=== PATIENT | male | born 1945 | race Caucasian/White ===

== ENCOUNTER 2017-09-05 07:41 | Day surgery (SDC) | payer MEDICARE, BC ==
[~2017-09-05] VITALS: Ht 188 cm; Wt 72.5 kg
[~2017-09-05 07:41] MED LIST: AMOX1XR PO; ASPI81CH PO; ATEN50 PO; Augmentin 875-1 EACH PO; CITA20 PO; CYCL10 PO; FLUSAL2505 INH; FLUT.05NI; GABA300 PO; HYDMOR4 PO; IBUP600 PO; Keflex500 MG PO; LEVFLO500 PO; MELO7.5; MELO7.5 PO; NAPR220; Norco 5-325 Ta1 EACH PO; OCUVITE EYE +1 EACH PO; OXYACE5T PO; OXYB5 PO; OXYC5 PO; PROM25 PO; Restoril30 MG PO; TAMS.4ER PO; TEMA30 PO; VENL150ER PO; VENL25 PO
[2017-09-05] MEDS ORDERED: AMLO5 PO (08:14)
== END 2017-09-05 11:06 | disposition home or self-care (01) ==
LOC: ORSCSDS 07:41
PROVIDERS: Orthopaedic Surgery
PROC: 01X40Z4 Transfer Ulnar Nerve to Ulnar Nerve, Open Approach (ICD-10-PCS; principal; 2017-09-05 08:45)
DX: G56.21 Lesion of ulnar nerve, right upper limb (principal); J44.9 Chronic obstructive pulmonary disease, unspecified; F17.210 Nicotine dependence, cigarettes, uncomplicated; F32.9 Major depressive disorder, single episode, unspecified; Z79.899 Other long term (current) drug therapy
CPT/HCPCS: J0171; J0690; J1100; J2250; J2370; J2405; J3010; J7120

== ENCOUNTER → 2018-12-31 | Outpatient (CLI) | payer MEDICARE, BC ==
[~2018-12-31] MED LIST changes: +AMLO5 PO
[2018-12-31 14:22] LABS: BASOPHILS ABSOLUTE AUTO 0.04 K/mm3 (0.00-0.23); BASOPHILS PERCENT AUTO 0 % (0-2); EOSINOPHILS PERCENT AUTO 0 % (0-6); Hematocrit 42.8 % (37.0-53.0); Hemoglobin 15.1 g/dL (13.5-17.5); IMMATURE GRAN ABSOLUTE AUTO 0.03 K/mm3 (0.00-0.10); IMMATURE GRAN PERCENT AUTO 0 % (0-1); LYMPHOCYTES ABSOLUTE AUTO 1.28 K/mm3 (0.84-5.20); LYMPHOCYTES PERCENT AUTO 14 % (21-46); MONOCYTES ABSOLUTE AUTO 0.82 K/mm3 (0.16-1.47); MONOCYTES PERCENT AUTO 9 % (4-13); Mean Corpuscular HGB 35.6 pg (26.0-34.0); Mean Corpuscular HGB Conc 35.3 g/dL (31.5-36.5); Mean Corpuscular Volume 101 fL (80-100); NEUTROPHILS ABSOLUTE AUTO 7.24 K/mm3 (1.96-9.15); NEUTROPHILS PERCENT AUTO 77 % (41-73); Platelet Count 245 K/mm3 (150-400); RDW Coefficient Variation 12.6 % (11.7-14.2); Red Blood Cell Count 4.24 M/mm3 (4.30-5.90); White Blood Cell Count 9.41 K/mm3 (4.00-11.30)
[2018-12-31 14:32] LABS: Alanine Aminotransfer (ALT/SGP 29 U/L (12-78); Albumin, Blood 3.4 g/dL (3.4-5.0); Albumin/Globulin Ratio 0.9 (0.8-1.8); Alk Phos 118 U/L (40-126); Anion Gap 9 mmol/L (6-16); Aspartate Aminotrans (AST/SGOT 51 U/L (12-37); Bilirubin, Total 0.5 mg/dL (0.1-1.0); Blood Urea Nitrogen 8 mg/dL (8-24); Bun/Creatinine Ratio 10.5 (12.0-20.0); CO2, Blood 29 mmol/L (21-32); Calcium, Blood 9.2 mg/dL (8.5-10.1); Chloride, Blood 95 mmol/L (98-108); Creatinine, Blood 0.76 mg/dL (0.60-1.20); Globulin, Blood 3.8 g/dL (2.2-4.0); Glomerular Filtration Rate >60 (60-); Glucose, Blood 153 mg/dL (70-99); Potassium, Blood 4.3 mmol/L (3.5-5.5); Sodium, Blood 133 mmol/L (136-145); Total Protein, Blood 7.2 g/dL (6.4-8.2)
== END | disposition home or self-care (01) ==
LOC: LAB SHORT 14:17 → LAB EV 14:17
PROVIDERS: Physician Assistant Surgical
DX: R10.9 Unspecified abdominal pain (principal)
CPT/HCPCS: 80053; 85025; 87086

== ENCOUNTER 2019-05-15 18:27 | Emergency (ER) | payer MEDICARE, BC ==
[~2019-05-15] VITALS: Ht 188 cm; Wt 70.3 kg
[2019-05-15] MEDS ORDERED: GABA100 PO (18:42)
[2019-05-15] MEDS ORDERED: AMLO10 PO (18:43)
[2019-05-15] MEDS ORDERED: PRED1 (18:44)
[2019-05-15 19:13] LABS: BASOPHILS ABSOLUTE AUTO 0.03 K/mm3 (0.00-0.23); BASOPHILS PERCENT AUTO 0 % (0-2); EOSINOPHILS ABSOLUTE AUTO 0.02 K/mm3 (0.00-0.68); EOSINOPHILS PERCENT AUTO 0 % (0-6); Hematocrit 37.6 % (37.0-53.0); Hemoglobin 13.1 g/dL (13.5-17.5); IMMATURE GRAN ABSOLUTE AUTO 0.09 K/mm3 (0.00-0.10); IMMATURE GRAN PERCENT AUTO 1 % (0-1); LYMPHOCYTES ABSOLUTE AUTO 1.03 K/mm3 (0.84-5.20); LYMPHOCYTES PERCENT AUTO 12 % (21-46); MONOCYTES ABSOLUTE AUTO 0.71 K/mm3 (0.16-1.47); MONOCYTES PERCENT AUTO 8 % (4-13); Mean Corpuscular HGB Conc 34.8 g/dL (31.5-36.5); Mean Corpuscular Volume 106 fL (80-100); Mean Platelet Volume 9.5 fL (9.1-12.4); NEUTROPHILS ABSOLUTE AUTO 7.01 K/mm3 (1.96-9.15); NEUTROPHILS PERCENT AUTO 79 % (41-73); NRBC ABSOLUTE 0.03 K/mm3 (0.00-0.02); NRBC Auto 0.3 /100 WBC (0.0-0.2); Platelet Count 236 K/mm3 (150-400); RDW Standard Deviation 50.2 fL (35.1-46.3); Red Blood Cell Count 3.54 M/mm3 (4.30-5.90); White Blood Cell Count 8.89 K/mm3 (4.00-11.30)
[2019-05-15 19:39] LABS: Alanine Aminotransfer (ALT/SGP 52 U/L (12-78); Albumin, Blood 2.7 g/dL (3.4-5.0); Albumin/Globulin Ratio 0.8 (0.8-1.8); Alk Phos 108 U/L (50-136); Anion Gap 6 mmol/L (6-16); Aspartate Aminotrans (AST/SGOT 79 U/L (12-37); Bilirubin, Total 0.4 mg/dL (0.1-1.0); Blood Urea Nitrogen 7 mg/dL (8-24); CO2, Blood 26 mmol/L (21-32); Calcium, Blood 8.4 mg/dL (8.5-10.1); Chloride, Blood 101 mmol/L (98-108); Creatinine, Blood 0.47 mg/dL (0.60-1.20); Globulin, Blood 3.6 g/dL (2.2-4.0); Glomerular Filtration Rate >60 (60-); Glucose, Blood 97 mg/dL (70-99); Potassium, Blood 5.2 mmol/L (3.5-5.5); Sodium, Blood 133 mmol/L (136-145); Total Protein, Blood 6.3 g/dL (6.4-8.2); Troponin I <0.015 ng/mL (0.000-0.040)
== END 2019-05-15 21:35 | disposition home or self-care (01) ==
LOC: ER 18:27
PROVIDERS: Emergency Medicine
DX: F10.229 Alcohol dependence with intoxication, unspecified (principal); Y90.8 Blood alcohol level of 240 mg/100 ml or more; R55 Syncope and collapse; S22.42XA Multiple fractures of ribs, left side, initial encounter for closed fracture; S32.019A Unspecified fracture of first lumbar vertebra, initial encounter for closed fracture; S32.029A Unspecified fracture of second lumbar vertebra, initial encounter for closed fracture; S30.1XXA Contusion of abdominal wall, initial encounter; W18.39XA Other fall on same level, initial encounter; F17.210 Nicotine dependence, cigarettes, uncomplicated; Z79.899 Other long term (current) drug therapy; Z79.1 Long term (current) use of non-steroidal anti-inflammatories (NSAID); Z79.52 Long term (current) use of systemic steroids
CPT/HCPCS: 72131; 80053; 84484; 85025; 93005; 93010; 96374; 99284-25; A9270; G0480; J1885

== ENCOUNTER 2019-09-24 09:04 | Inpatient (IN) | payer MEDICARE, BC ==
[~2019-09-24] VITALS: Ht 188 cm; Wt 66.2 kg
[~2019-09-24 09:04] MED LIST changes: +AMLO10 PO; -AMLO5 PO; +GABA100 PO; +PRED1
[2019-09-24 09:55] LABS: Bilirubin, Urine Neg (Neg); Blood, Urine Neg (Neg); Glucose Qualitative, Urine Neg (Neg); Ketones, Urine Neg (Neg); Leukocyte Esterase, Urine Neg (Neg); Nitrite, Urine Neg (Neg); Protein, Urine Neg (Neg); Source, Urine Catheter; Urobilinogen, Urine 1+ (Normal)
[2019-09-24 10:02] LABS: Alanine Aminotransfer (ALT/SGP 46 U/L (12-78); Albumin, Blood 1.7 g/dL (3.4-5.0); Albumin/Globulin Ratio 0.5 (0.8-1.8); Alk Phos 122 U/L (50-136); Anion Gap 6 mmol/L (6-16); Aspartate Aminotrans (AST/SGOT 38 U/L (12-37); Blood Urea Nitrogen 7 mg/dL (8-24); Bun/Creatinine Ratio 18.6 (12.0-20.0); CO2, Blood 29 mmol/L (21-32); Calcium, Blood 7.8 mg/dL (8.5-10.1); Chloride, Blood 103 mmol/L (98-108); Creatinine, Blood 0.38 mg/dL (0.60-1.20); Globulin, Blood 3.4 g/dL (2.2-4.0); Glomerular Filtration Rate >60 (60-); Glucose, Blood 116 mg/dL (70-99); Potassium, Blood 3.1 mmol/L (3.5-5.5); Sodium, Blood 138 mmol/L (136-145); Total Protein, Blood 5.1 g/dL (6.4-8.2)
[2019-09-24 10:05] LABS: Troponin I 0.016 ng/mL (0.000-0.040)
[2019-09-24 10:06] LABS: Bilirubin, Total 0.4 mg/dL (0.1-1.0)
[2019-09-24 10:24] LABS: BASOPHILS ABSOLUTE AUTO 0.04 K/mm3 (0.00-0.23); BASOPHILS PERCENT AUTO 1 % (0-2); EOSINOPHILS ABSOLUTE AUTO 0.02 K/mm3 (0.00-0.68); EOSINOPHILS PERCENT AUTO 0 % (0-6); Hematocrit 33.7 % (37.0-53.0); Hemoglobin 11.2 g/dL (13.5-17.5); IMMATURE GRAN PERCENT AUTO 1 % (0-1); LYMPHOCYTES ABSOLUTE AUTO 1.16 K/mm3 (0.84-5.20); LYMPHOCYTES PERCENT AUTO 14 % (21-46); MONOCYTES ABSOLUTE AUTO 0.89 K/mm3 (0.16-1.47); MONOCYTES PERCENT AUTO 11 % (4-13); Mean Corpuscular HGB 35.7 pg (26.0-34.0); Mean Corpuscular HGB Conc 33.2 g/dL (31.5-36.5); Mean Platelet Volume 9.1 fL (9.1-12.4); NEUTROPHILS ABSOLUTE AUTO 5.96 K/mm3 (1.96-9.15); NEUTROPHILS PERCENT AUTO 73 % (41-73); Platelet Count 407 K/mm3 (150-400); RDW Coefficient Variation 13.6 % (11.7-14.2); RDW Standard Deviation 53.9 fL (35.1-46.3); Red Blood Cell Count 3.14 M/mm3 (4.30-5.90); White Blood Cell Count 8.17 K/mm3 (4.00-11.30)
[2019-09-24 10:25] LABS: Mean Corpuscular Volume 107 fL (80-100)
[2019-09-24 10:29] LABS: Appearance, Urine Clear (Clear); Color, Urine Yellow (P-Yellow)
[2019-09-24] MEDS ORDERED: TRAM50 PO (12:09)
[2019-09-24] MEDS ORDERED: ESCITALOPRAM OX20 M1 PO (12:09)
[2019-09-24] MEDS ORDERED: POTASSIUM CHLO10 MEQ PO (12:10)
[2019-09-24] MEDS ORDERED: FUROSEMIDE40 MG PO (12:10)
[2019-09-24] MEDS ORDERED: Primidone50 MG PO (12:11)
[2019-09-24] MEDS ORDERED: AMLO5 PO (12:12)
--- NOTE | 2019-09-24 14:24 | NUR ---
Echocardiogram completed.
--- NOTE | 2019-09-24 17:44 | NUR ---
PT SETTLED INTO ROOM AT 1430. PT DOING WELL, BUT WAS GETTING AGITATED AND STATED HE WAS FEELING ANXIOUS. CWIA WAS AN 8 PT TREATED PER EMAR. WILL CONTINUE TO MONITOR. PT AOX4 BUT THEN WILL BE MILDLY CONFUSED. PT WAS ABLE TO ANSWER HX WITHOUT PRESENT. CALL LIGHT WITHIN REACH. BED ALARM IN PLACE.
[2019-09-25 04:27] LABS: BASOPHILS ABSOLUTE AUTO 0.03 K/mm3 (0.00-0.23); BASOPHILS PERCENT AUTO 1 % (0-2); EOSINOPHILS ABSOLUTE AUTO 0.07 K/mm3 (0.00-0.68); EOSINOPHILS PERCENT AUTO 1 % (0-6); Hematocrit 32.4 % (37.0-53.0); Hemoglobin 10.7 g/dL (13.5-17.5); IMMATURE GRAN PERCENT AUTO 2 % (0-1); LYMPHOCYTES PERCENT AUTO 14 % (21-46); MONOCYTES ABSOLUTE AUTO 0.73 K/mm3 (0.16-1.47); MONOCYTES PERCENT AUTO 11 % (4-13); Mean Corpuscular HGB 35.8 pg (26.0-34.0); Mean Corpuscular Volume 108 fL (80-100); Mean Platelet Volume 8.9 fL (9.1-12.4); NEUTROPHILS ABSOLUTE AUTO 4.82 K/mm3 (1.96-9.15); NEUTROPHILS PERCENT AUTO 72 % (41-73); Platelet Count 423 K/mm3 (150-400); RDW Coefficient Variation 13.5 % (11.7-14.2); RDW Standard Deviation 53.7 fL (35.1-46.3); Red Blood Cell Count 2.99 M/mm3 (4.30-5.90); White Blood Cell Count 6.65 K/mm3 (4.00-11.30)
[2019-09-25 04:48] LABS: Alanine Aminotransfer (ALT/SGP 38 U/L (12-78); Albumin, Blood 1.6 g/dL (3.4-5.0); Albumin/Globulin Ratio 0.5 (0.8-1.8); Alk Phos 111 U/L (50-136); Anion Gap 5 mmol/L (6-16); Aspartate Aminotrans (AST/SGOT 31 U/L (12-37); Bilirubin, Total 0.4 mg/dL (0.1-1.0); Blood Urea Nitrogen 5 mg/dL (8-24); Bun/Creatinine Ratio 11.2 (12.0-20.0); CO2, Blood 26 mmol/L (21-32); Calcium, Blood 7.8 mg/dL (8.5-10.1); Chloride, Blood 108 mmol/L (98-108); Creatinine, Blood 0.45 mg/dL (0.60-1.20); Glomerular Filtration Rate >60 (60-); Glucose, Blood 80 mg/dL (70-99); Magnesium, Blood 1.9 mg/dL (1.6-2.4); Potassium, Blood 3.6 mmol/L (3.5-5.5); Sodium, Blood 139 mmol/L (136-145); Total Protein, Blood 4.6 g/dL (6.4-8.2)
--- NOTE | 2019-09-25 06:22 | NUR ---
SHIFT SUMMARY PT IS A 74 Y/O MALE, ADMITTED FOR INCREASED WEAKNESS, FREQUENT FALLS AT HOME AND ASPIRATION PNEUMONIA. THE PT WAS VERY CONFUSED THROUGH THE NIGHT, A&O X SELF AND FAMILY ONLY. PT IS CURRENTLY ON CIWA, AND STATED THAT HE DRINKS AT LEAST A "SIX PACK OF BEER A NIGHT". CIWA SCORES WERE BETWEEN 15-17, DUE TO PT'S AMS, VISIBLE TREMORS EVEN AT REST, AND C/O A SEVERE HEADACHE. PT WAS MEDICATED WITH OT ULTRAM FOR CHRONIC NECK PAIN AND HEADACHE AFTER CONSULTING WITH HOSPITALIST ELECTROPLATER JOSE ALFREDO MATTHEW, WHICH PER PT HELPED THE PT'S NECK PAIN BUT NOT THE HEADACHE. PT WAS MEDICATED TWICE WITH LIBRIUM, AND ONCE WITH IV ATIVAN. NO COMPLAINTS OF NAUSEA OR SOB. VITAL SIGNS STABLE. PT DID SHOW SIGNS OF ASPIRATION WHEN TAKING LIBRIUM THIS AM. NO OTHER ACUTE CHANGES IN PT CONDITION NOTED. WILL CONTINUE TO MONITOR AND TREAT PER EMAR UNTIL HAND OFF TO DAY SHIFT RN.
[2019-09-25 13:11] LABS: Percent Saturation 27.5 % (20.0-50.0)
[2019-09-25 14:04] LABS: U Amphetamine Screen Not Detected; U Barbituate Screen Not Detected; U Benzodiazapine Screen DETECTED; U Buprenorphine Screen Not Detected; U Cannabinoids Screen Not Detected; U Cocaine Screen Not Detected; U Methadone Screen Not Detected; U Methamphetamine Screen Not Detected; U Opiates Screen Not Detected; U Oxycodone Screen Not Detected; U Propoxyphene Screen Not Detected
--- NOTE | 2019-09-25 18:30 | NUR ---
SHIFT SUMMARY PATIENT DENIES NAUSEA AND SHORTNESS OF BREATH. REPORTS PAIN IN HIS NECK. NEW ORDERS FOR PAIN MEDS GIVEN. PATIENT CIWA'S STABLE UNDER 8. PATIENT WORKED WITH PT TODAY. PATIENT UNABLE TO BEAR WEIGHT OR TRANFER TO CHAIR. PATIENT REPOSITIONED Q2. PATIENT MILDLY CONFUSED. CALL LIGHT IN REACH.
[2019-09-26 04:52] LABS: BASOPHILS ABSOLUTE AUTO 0.04 K/mm3 (0.00-0.23); BASOPHILS PERCENT AUTO 1 % (0-2); EOSINOPHILS ABSOLUTE AUTO 0.07 K/mm3 (0.00-0.68); EOSINOPHILS PERCENT AUTO 1 % (0-6); Hematocrit 33.5 % (37.0-53.0); IMMATURE GRAN ABSOLUTE AUTO 0.12 K/mm3 (0.00-0.10); IMMATURE GRAN PERCENT AUTO 2 % (0-1); LYMPHOCYTES ABSOLUTE AUTO 0.57 K/mm3 (0.84-5.20); LYMPHOCYTES PERCENT AUTO 7 % (21-46); MONOCYTES ABSOLUTE AUTO 0.64 K/mm3 (0.16-1.47); MONOCYTES PERCENT AUTO 8 % (4-13); Mean Corpuscular HGB 35.5 pg (26.0-34.0); Mean Corpuscular HGB Conc 32.8 g/dL (31.5-36.5); Mean Corpuscular Volume 108 fL (80-100); NEUTROPHILS ABSOLUTE AUTO 6.65 K/mm3 (1.96-9.15); NEUTROPHILS PERCENT AUTO 82 % (41-73); Platelet Count 446 K/mm3 (150-400); RDW Coefficient Variation 13.6 % (11.7-14.2); RDW Standard Deviation 54.3 fL (35.1-46.3); White Blood Cell Count 8.09 K/mm3 (4.00-11.30)
[2019-09-26 05:10] LABS: Anion Gap 4 mmol/L (6-16); Blood Urea Nitrogen 4 mg/dL (8-24); Bun/Creatinine Ratio 9.4 (12.0-20.0); CO2, Blood 27 mmol/L (21-32); Calcium, Blood 8.2 mg/dL (8.5-10.1); Chloride, Blood 110 mmol/L (98-108); Creatinine, Blood 0.42 mg/dL (0.60-1.20); Glomerular Filtration Rate >60 (60-); Glucose, Blood 96 mg/dL (70-99); Magnesium, Blood 1.8 mg/dL (1.6-2.4); Potassium, Blood 3.1 mmol/L (3.5-5.5); Sodium, Blood 141 mmol/L (136-145)
--- NOTE | 2019-09-26 06:11 | NUR ---
SHIFT SUMMARY PT IS A 74 Y/O MALE, ADMITTED FOR INCREASED WEAKNESS, MULTIPLE FALLS AT HOME AND ASPIRATION PNA. HE IS A&O X SELF AND FAMILY, ABLE TO VERBALIZE NEEDS WELL BUT CONFUSED TO LOCATION AND DATE. PTS CIWA RAN 4-7, DUE TO PT'S DISORIENTATION. HE WAS MEDICATED ONCE FOR CHRONIC NECK PAIN WITH PRN ULTRAM. VITAL SIGNS STABLE. NO ACUTE CHANGES IN PT CONDITION NOTED. WILL CONTINUE TO MONITOR AND TREAT PER EMAR UNTIL HAND OFF TO DAY SHIFT RN.
--- NOTE | 2019-09-26 17:28 | NUR ---
SHIFT SUMMARY PATIENT MEDICATED X2 FOR PAIN THIS SHIFT. PATIENT DENIES NAUSEA AND SHORTNESS OF BREATH. PATIENT UP 2 ASSIST STAND PIVOT TO BSC. PATIENT EATING AND DRINKING WELL. AT BEDSIDE TODAY. CALL LIGHT IN REACH.
[2019-09-27 05:27] LABS: Hematocrit 32.9 % (37.0-53.0); Hemoglobin 10.8 g/dL (13.5-17.5); Mean Corpuscular HGB 35.8 pg (26.0-34.0); Mean Corpuscular HGB Conc 32.8 g/dL (31.5-36.5); Mean Corpuscular Volume 109 fL (80-100); Mean Platelet Volume 9.2 fL (9.1-12.4); Platelet Count 452 K/mm3 (150-400); RDW Standard Deviation 56.7 fL (35.1-46.3); Red Blood Cell Count 3.02 M/mm3 (4.30-5.90)
--- NOTE | 2019-09-27 05:55 | NUR ---
SHIFT SUMMARY PT IS A 74 Y/O MALE, ADMITTED FOR ASPIRATION PNA AND INCREASED WEAKNESS AFTER A FALL AT HOME. PT IS A&O X 2, THOUGH ABLE TO VERBALIZE NEEDS AND HISTORY WELL. CIWAS HAVE BEEN LOW, BETWEEN 1-5. PT WAS MEDICATED ONCE FOR CHRONIC NECK PAIN. NO COMPLAINTS OF NAUSEA OR SOB. VITAL SIGNS STABLE. PT SLEPT WELL DURING THE NIGHT. NO ACUTE CHANGES IN PT CONDITION NOTED. WILL CONTINUE TO MONITOR AND TREAT PER EMAR UNTIL HAND OFF TO DAY SHIFT RN.
[2019-09-27 05:58] LABS: Magnesium, Blood 1.7 mg/dL (1.6-2.4)
[2019-09-27 06:00] LABS: Anion Gap 5 mmol/L (6-16); Blood Urea Nitrogen 4 mg/dL (8-24); Bun/Creatinine Ratio 9.9 (12.0-20.0); CO2, Blood 25 mmol/L (21-32); Calcium, Blood 8.3 mg/dL (8.5-10.1); Chloride, Blood 111 mmol/L (98-108); Creatinine, Blood 0.41 mg/dL (0.60-1.20); Glomerular Filtration Rate >60 (60-); Glucose, Blood 92 mg/dL (70-99); Potassium, Blood 3.7 mmol/L (3.5-5.5); Sodium, Blood 141 mmol/L (136-145)
[2019-09-27] MEDS ORDERED: ALBU2.5V5 INH (15:23)
[2019-09-27] MEDS ORDERED: GABA100 PO (15:24)
[2019-09-27] MEDS ORDERED: FLUTICASONE-SA1 EAC1 INH (15:24)
[2019-09-27] MEDS ORDERED: METO25 PO (15:25)
[2019-09-27] MEDS ORDERED: NICO21TP TOP (15:26)
[2019-09-27] MEDS ORDERED: FOLI1 PO (15:27)
[2019-09-27] MEDS ORDERED: B-1100 M1 PO (15:27)
[2019-09-27] MEDS ORDERED: LEVOFLOXACIN750 MG PO (15:27)
--- NOTE | 2019-09-27 15:43 | NUR ---
DISCHARGE NOTE- PT DISCHARGED TO [facility] IN [place]. IVS AND TELE DC'D PRIOR TO DISCHARGE. PT CHANGED AND TRANSFERED TO CHAIR PENDING WC TRANSPORT. PT TRANSFERED 1PA FROM THE CHAIR TO THE AND WAS TAKEN VIA TRANSPORT TO [facility]. PER CARE MANAGEMENT PT SPOUSE WAS INFORMED OF THE DISCHARGE AND WILL MEET THE PT AT [facility].
== END 2019-09-27 15:40 | DRG 896 ==
LOC: ER 09:04 → MEDS 11:56
PROVIDERS: Emergency Medicine; Internal Medicine; Nurse Practitioner Acute Care; ADMIT Hospitalist
DX: F10.239 Alcohol dependence with withdrawal, unspecified (principal); J69.0 Pneumonitis due to inhalation of food and vomit; J44.9 Chronic obstructive pulmonary disease, unspecified; E87.6 Hypokalemia; F32.9 Major depressive disorder, single episode, unspecified; H35.30 Unspecified macular degeneration; G62.9 Polyneuropathy, unspecified; F17.210 Nicotine dependence, cigarettes, uncomplicated; Z66 Do not resuscitate; K22.4 Dyskinesia of esophagus; E83.42 Hypomagnesemia; D64.9 Anemia, unspecified
CPT/HCPCS: 36415; 51701; 70450; 71046; 80048; 80053; 81003; 82607; 82728; 82746; 83540; 83550; 83735; 84443; 84484; 85025; 85027; 92610; 93005; 93010; 93306; 94640; 94760; 96365-59; 96366-59; 96367-59; 96368; 96372-59; 97110; 97163; 97166; 97530; 97535; 99285-25; A9270-GY; C9113; J0696; J1650; J2060; J3411; J3475; J3480; J7030; J7042

== ENCOUNTER 2019-10-07 20:25 | Inpatient (IN) | payer MEDICARE, BC ==
[~2019-10-07] VITALS: Ht 190.5 cm; Wt 66.4 kg
[~2019-10-07 20:25] MED LIST changes: +AMLO5 PO; +FUROSEMIDE40 MG PO; +LEVOFLOXACIN750 MG PO; +NICO21TP TOP; +POTASSIUM CHLO10 MEQ PO
[2019-10-07 20:42] LABS: BASOPHILS ABSOLUTE AUTO 0.03 K/mm3 (0.00-0.23); BASOPHILS PERCENT AUTO 0 % (0-2); EOSINOPHILS ABSOLUTE AUTO 0.01 K/mm3 (0.00-0.68); EOSINOPHILS PERCENT AUTO 0 % (0-6); Hematocrit 31.2 % (37.0-53.0); Hemoglobin 10.5 g/dL (13.5-17.5); IMMATURE GRAN ABSOLUTE AUTO 0.04 K/mm3 (0.00-0.10); IMMATURE GRAN PERCENT AUTO 1 % (0-1); LYMPHOCYTES ABSOLUTE AUTO 0.88 K/mm3 (0.84-5.20); LYMPHOCYTES PERCENT AUTO 11 % (21-46); MONOCYTES ABSOLUTE AUTO 0.97 K/mm3 (0.16-1.47); MONOCYTES PERCENT AUTO 13 % (4-13); Mean Corpuscular HGB 34.1 pg (26.0-34.0); Mean Corpuscular HGB Conc 33.7 g/dL (31.5-36.5); NEUTROPHILS ABSOLUTE AUTO 5.76 K/mm3 (1.96-9.15); NEUTROPHILS PERCENT AUTO 75 % (41-73); Platelet Count 386 K/mm3 (150-400); RDW Coefficient Variation 12.6 % (11.7-14.2); RDW Standard Deviation 47.8 fL (35.1-46.3); Red Blood Cell Count 3.08 M/mm3 (4.30-5.90); White Blood Cell Count 7.69 K/mm3 (4.00-11.30)
[2019-10-07 20:43] LABS: Mean Corpuscular Volume 101 fL (80-100)
[2019-10-07] MEDS ORDERED: TRAM50 PO (20:55)
[2019-10-07] MEDS ORDERED: Primidone50 MG PO (20:56)
[2019-10-07] MEDS ORDERED: ESCITALOPRAM OX20 M1 PO (20:56)
[2019-10-07] MEDS ORDERED: ALBU2.5V5 NEB (20:57)
[2019-10-07] MEDS ORDERED: FLUTICASONE-SA1 EAC1 INH (20:58)
[2019-10-07] MEDS ORDERED: GABA100 PO (20:58)
[2019-10-07] MEDS ORDERED: METO25 PO (20:58)
[2019-10-07] MEDS ORDERED: FOLI1 PO (21:00)
[2019-10-07] MEDS ORDERED: B-1100 M1 PO (21:00)
[2019-10-07 21:05] LABS: Alanine Aminotransfer (ALT/SGP 18 U/L (12-78); Albumin, Blood 1.9 g/dL (3.4-5.0); Albumin/Globulin Ratio 0.6 (0.8-1.8); Alk Phos 88 U/L (50-136); Anion Gap 7 mmol/L (6-16); Aspartate Aminotrans (AST/SGOT 27 U/L (12-37); Bilirubin, Total 0.2 mg/dL (0.1-1.0); Blood Urea Nitrogen 8 mg/dL (8-24); Bun/Creatinine Ratio 16.6 (12.0-20.0); CO2, Blood 26 mmol/L (21-32); Calcium, Blood 8.1 mg/dL (8.5-10.1); Chloride, Blood 98 mmol/L (98-108); Creatinine, Blood 0.48 mg/dL (0.60-1.20); Globulin, Blood 3.3 g/dL (2.2-4.0); Glomerular Filtration Rate >60 (60-); Glucose, Blood 147 mg/dL (70-99); Magnesium, Blood 1.4 mg/dL (1.6-2.4); Potassium, Blood 3.9 mmol/L (3.5-5.5); Sodium, Blood 131 mmol/L (136-145); Total Protein, Blood 5.2 g/dL (6.4-8.2)
[2019-10-07 21:49] LABS: Source, Urine Catheter
[2019-10-07 21:54] LABS: Bilirubin, Urine Neg (Neg); Blood, Urine Neg (Neg); Glucose Qualitative, Urine Neg (Neg); Ketones, Urine Neg (Neg); Leukocyte Esterase, Urine 1+ (Neg); Nitrite, Urine Neg (Neg); Protein, Urine Neg (Neg); Urobilinogen, Urine NORM (Normal)
[2019-10-07 22:03] LABS: Appearance, Urine Clear (Clear); Color, Urine Yellow (P-Yellow)
[2019-10-07 22:04] LABS: Bacteria Not Seen /hpf; Red Blood Cells, Urine Not Seen /hpf (0-2); Squamous Epithelial Cells Not Seen /hpf (Few); Transitional Epithelial Cells Few /hpf (0-Rare); White Blood Cells, Urine Rare /hpf (0-5)
--- NOTE | 2019-10-08 01:01 | NUR ---
PATIENT IS A NEW ADMIT FROM THE ED. AMS SLOWLY IMPROVING PER ED RN. PATIENT ABLE TO ANSWER A FEW BASIC QUESTIONS. FOUR PERSON TRANSFER FROM [facility] TO BED. BEDREST. ON 3L O2 NC. ALMANZA PRESENT ON ADMIT FROM THE ED. AXOX 3 AND SLOW TO RESPOND. KNOWS HE IS AT [facility], WHAT TOWN HE LIVES IN AND FOLLOWING DIRECTIONS. WOUND ON COCCYX, BILATERAL HEELS AND ELBOWS. PHOTO'S TAKEN AND MEPILEX APPLIED TO ALL SITES. NS STARTED AT 100 mL/HR. BED ALARM ACTIVATED, FALL RISK. CALL LIGHT IN REACH. WILL CONTINUE TO MONITOR.
--- NOTE | 2019-10-08 02:47 | NUR ---
PATIENT SLEEPING. NS INFUSING AT 100 mL/HR. CALL LIGHT IN REACH.
--- NOTE | 2019-10-08 04:18 | NUR ---
SHIFT SUMMARY PATIENT HAD NO ACUTE CHANGES OBSERVED. AXOX 2-3. AMS IMPROVING WITH PATIENT ABLE TO ANSWER BASIC QUESTIONS WITH SHORT SENTENCES. PIV REMAINS INTACT. NS INFUSING AT 100 mL/HR. IV ABX INFUSED. VSS-LOW GRADE FEVER. FEVER IMPROVING SINCE ADMIT. DENIES PAIN, SOB, AND N/V. ON 3L O2 NC AND RA BASELINE. PATIENT ABLE TO SLEEP AFTER ADMIT. BED IN LOWEST POSITION AND ALARM ACITVATED, FALL RISK. CALL LIGHT IN REACH. WILL CONTINUE TO MONITOR UNTIL DAY SHIFT NURSE ASSUMES CARE.
--- NOTE | 2019-10-08 05:29 | NUR ---
INCREASED CONFUSION AT THIS TIME. PATIENT BELIEVES HE IS AT HOME. HE ASKED IF THIS ROOM IS OFFICE SPACE. PATIENT REORIENTED TO PLACE. IV ABX INFUSING. BED ALARM ACTIVATED. CALL LIGHT IN REACH.
[2019-10-08 06:00] LABS: Anion Gap 5 mmol/L (6-16); Blood Urea Nitrogen 5 mg/dL (8-24); Bun/Creatinine Ratio 10.3 (12.0-20.0); CO2, Blood 27 mmol/L (21-32); Calcium, Blood 7.8 mg/dL (8.5-10.1); Chloride, Blood 104 mmol/L (98-108); Creatinine, Blood 0.49 mg/dL (0.60-1.20); Glomerular Filtration Rate >60 (60-); Glucose, Blood 76 mg/dL (70-99); Potassium, Blood 3.6 mmol/L (3.5-5.5); Sodium, Blood 136 mmol/L (136-145)
--- NOTE | 2019-10-08 06:07 | NUR ---
PATIENT WANTS TO USE URINAL AND REMINDED X 3 HE HAS A ALMANZA IN PLACE.
--- NOTE | 2019-10-08 18:06 | NUR ---
SHIFT SUMMARY. ALERT, ORIENTATED TO SELF AND . PLEASANT, MOSTLY COOPERATIVE. BED ALARM ON FOR SAFETY. PT DENIES PAIN, NO S/SX OF DISCOMFORT OR DISTRESS. PT ON RA WITH SPO2 GREATER THAN 94%. LUNGS CLEAR. PT WITH INCONTINENCE OF BOWEL AND BLADDER. AT BEDSIDE THIS AFTERNOON. NO NEW CHANGES OR CONCERNS.
--- NOTE | 2019-10-09 04:35 | NUR ---
SUMMARY PT STILL ALERT TO SELF. PT CONFUSED. PT THINKS HE IS IN HIS GARAGE. PT CONTINUES TO BE INCONTINENT BUT IS ABLE AT TIMES REQUEST A URINAL. PT HAS TRIED TO GET OUT OF BED TO GET GO SMOKE. PT HAS REQUESTED A GLASS OF WINE THIS AM. PT HAS INTERMITENT DRY COUGH WITH NO PRODUCTION. PT FLUIDS STOPPED AND LS HAD NOTED SLIGHT CRACKLES IN BASES. PT BREATHING EASY. TEMPS ARE TRENDING DOWN THIS SHIFT. PT AWAKE WATCHING TV AND BREATHING EASY ON RA. CALL LIGHT IN REACH AND BED ALARM ON.
--- NOTE | 2019-10-09 16:52 | NUR ---
SHIFT SUMMARY- PT IS PLESANT AND COOPERATIVE. HE HAS SOME CONFUSION. HE HAD THREE BM THIS SHIFT. HE HAS BEEN GETTING UP FREQUENTLY THIS SHIFT, AND NEEDS TO BE REMINDED THAT HE NEEDS TO CALL IF HE NEEDS SOMETHING. HE IS UNSTEADY ON HIS FEET. HE SLEPT THIS AFTERNOON. HE IS EATING AND DRINKING WELL.
--- NOTE | 2019-10-10 04:16 | NUR ---
SUMMARY: 74 Y/O MALE RESTED COMFORTABLY ALL SHIFT; DENIES PAIN OR NAUSEA; ALERT AND ORIENTED X 2; BED ALARM APPLIED, BED LOW POSITION WITH CALL LIGHT AT SIDE.
--- NOTE | 2019-10-10 17:16 | NUR ---
SHIFT SUMMARY- PT IS PLESANT AND COOPERATIVE. HE HAS SOME INTERMITENT CONFUSION. RECIEVING IV ANTIBIOTICS AND WORKING WITH RT. HE TOOK A NAP THIS AFTERNOON. IS EATING AND DRINKING WELL.
--- NOTE | 2019-10-11 05:55 | NUR ---
SHIFT SUMMARY: PATIENT IS A&OX1, TO SELF ONLY AT TIMES REMEBERS PLACE. REQUEST'S TO GO OUT AND SMOKE BUT IS EASILY REDIRECTED WHEN TOLD HE IS IN THE HOSPITAL AND NOT AT HOME. UNABLE TO VOID IN URINAL WITHOUT ASSISTANCE. REPORTED NECK PAIN, REPOSITIONING AND TYLENOL WERE GIVEN WITH GOOD EFFECT. VS ARE STABLE, BED ALARM IS ON FOR SAFETY.
--- NOTE | 2019-10-11 14:19 | NUR ---
SHIFT SUMMARY PT AWAKE DURING SHIFT REPORT, REQUESTED COFFEE. PT THEN REQUESTED ASSIST WITH URINAL, BUT WAS UNABLE TO VOID. PT TRIED TO USE URINAL SEVERAL TIMES BEFORE BEING ABLE TO VOID. PT HAS URGENCY AND THEN CAN'T VOID AT TIMES WHEN HE WANTS TO. PT IS WEAK, NEEDING SOME ASSIST WITH MEALS. IN TO SEE PT AFTER BREAKFAST AND UNTIL AFTER LUNCH; ASSISTED PT AT TIMES DURING LUNCH. MEDS ADMIN WHOLE WITH YOGURT THIS AM. IV ABX INFUSED PER EMAR; SUSHIL IV. POSSIBLE D/C TO SNF WHEN BED AVAIL. NO C/O PAIN. DENIED FURTHER NEEDS. ABLE TO USE CALL LT WHEN NEEDED.
--- NOTE | 2019-10-11 19:19 | NUR ---
pt has iv placed 09/19/2019 that said placed 12/08/19 which is in the future. Corrected insertion date. IV patent saline locked after antibiotic infusion.
--- NOTE | 2019-10-12 06:35 | NUR ---
74 year old Male with aspiration pneumonia and bilat heel decubs and coccyx dcub and multiple skin tears upper extremities continues high fall risk. Impulsive with poor safety awareness. Fall and dcub precautions. Wound care to bilat le ulcers. HAs PT ot EVAL & TX PENDING. Came from [facility] and being tx for Sepsis. Jumped out of bed x 1 setting off bed alarm. Urinated on floor x 1 and wet attends x 1 . Void x 1 with assist. Poor appetite. Pt says several times he wants a beer. PT calls out for occasionally. Working with speech therapy with aspiration precautions. [place], PT has flat affect.
--- NOTE | 2019-10-12 13:40 | NUR ---
PT D/C.... PT D/C TO SNF. 2 IVS REMOVED WNL. ALL OF PT'S BELONGINS PACKED AND SENT WITH THE PT. DRESSING CHANGE DONE TO PT'S HEEL'S. PT DENIES ANY CHEST PAIN/PRESSURE N/V OR SOB AT TIME OF D/C
--- NOTE | 2019-10-12 13:52 | NUR ---
IV REMOVED LEFT UPPER ARM AND RIGHT WRIST. WNL. RIGHT WRIST IV NOT DOCUMENTED IN INTERVENTIONS.
== END 2019-10-12 13:30 | DRG 871 ==
LOC: ER 20:25 → SURS 20:26 → MEDS 20:26 → ENPENDDIS 10-12 11:54 → MEDS 10-12 13:30
PROVIDERS: Emergency Medicine; ADMIT Internal Medicine
DX: A41.9 Sepsis, unspecified organism (principal); J69.0 Pneumonitis due to inhalation of food and vomit; G92 Toxic encephalopathy; E87.1 Hypo-osmolality and hyponatremia; J44.9 Chronic obstructive pulmonary disease, unspecified; F03.90 Unspecified dementia, unspecified severity, without behavioral disturbance, psychotic disturbance, mood disturbance, and anxiety; I48.0 Paroxysmal atrial fibrillation; Z74.09 Other reduced mobility; D64.9 Anemia, unspecified; F10.20 Alcohol dependence, uncomplicated; G62.9 Polyneuropathy, unspecified; F32.9 Major depressive disorder, single episode, unspecified; F17.210 Nicotine dependence, cigarettes, uncomplicated; Z79.51 Long term (current) use of inhaled steroids; Z79.899 Other long term (current) drug therapy
CPT/HCPCS: 36415; 51702; 71045; 80048; 80053; 81001; 82140; 82947; 83605; 83735; 83880; 84145; 84146; 85025; 87040; 92526; 92610; 93005; 93010; 94640; 94760; 96361; 96361-59; 96365-59; 96372; 96376; 97116; 97162; 99285-25; A9270; A9270-GY; G0378; J0696; J1650; J2543; J7030

== ENCOUNTER 2019-11-26 11:29 | Emergency (ER) | payer MEDICARE, BC ==
[~2019-11-26] VITALS: Ht 188 cm; Wt 63.5 kg
[~2019-11-26 11:29] MED LIST changes: +ALBU2.5V5 NEB; +B-1100 M1 PO; +ESCITALOPRAM OX20 M1 PO; +FLUTICASONE-SA1 EAC1 INH; +FOLI1 PO; +METO25 PO; +Primidone50 MG PO; +TRAM50 PO
== END 2019-11-26 13:22 | disposition home or self-care (01) ==
LOC: ER 11:29
DX: S41.111A Laceration without foreign body of right upper arm, initial encounter (principal); S00.83XA Contusion of other part of head, initial encounter; I10 Essential (primary) hypertension; F32.9 Major depressive disorder, single episode, unspecified; J44.9 Chronic obstructive pulmonary disease, unspecified; G62.9 Polyneuropathy, unspecified; Z79.899 Other long term (current) drug therapy; W19.XXXA Unspecified fall, initial encounter
CPT/HCPCS: 70450; 99283-25

== ENCOUNTER 2019-11-29 08:44 | Emergency (ER) | payer MEDICARE, BC ==
[~2019-11-29] VITALS: Ht 188 cm; Wt 65.8 kg
[2019-11-29] MEDS ORDERED: CLOTRIMAZOLE TOP (09:06)
[2019-11-29] MEDS ORDERED: Keflex500 MG PO (09:06)
== END 2019-11-29 09:18 | disposition home or self-care (01) ==
LOC: ER 08:44
DX: N48.1 Balanitis (principal); I10 Essential (primary) hypertension; J44.9 Chronic obstructive pulmonary disease, unspecified; F32.9 Major depressive disorder, single episode, unspecified; G62.9 Polyneuropathy, unspecified; Z79.899 Other long term (current) drug therapy
CPT/HCPCS: 99283; A9270-GY

== ENCOUNTER 2019-12-08 01:15 | Emergency (ER) | payer MEDICARE, BC ==
[~2019-12-08] VITALS: Ht 188 cm; Wt 63.5 kg
[~2019-12-08 01:15] MED LIST changes: +CLOTRIMAZOLE TOP; +ESCI20 PO; -ESCITALOPRAM OX20 M1 PO
[2019-12-08 01:52] LABS: BASOPHILS ABSOLUTE AUTO 0.06 K/mm3 (0.00-0.23); BASOPHILS PERCENT AUTO 1 % (0-2); EOSINOPHILS ABSOLUTE AUTO 0.06 K/mm3 (0.00-0.68); EOSINOPHILS PERCENT AUTO 1 % (0-6); Hematocrit 41.7 % (37.0-53.0); Hemoglobin 13.7 g/dL (13.5-17.5); IMMATURE GRAN ABSOLUTE AUTO 0.03 K/mm3 (0.00-0.10); IMMATURE GRAN PERCENT AUTO 0 % (0-1); LYMPHOCYTES ABSOLUTE AUTO 1.86 K/mm3 (0.84-5.20); LYMPHOCYTES PERCENT AUTO 23 % (21-46); MONOCYTES ABSOLUTE AUTO 0.76 K/mm3 (0.16-1.47); MONOCYTES PERCENT AUTO 10 % (4-13); Mean Corpuscular HGB 32.2 pg (26.0-34.0); Mean Corpuscular HGB Conc 32.9 g/dL (31.5-36.5); Mean Corpuscular Volume 98 fL (80-100); Mean Platelet Volume 8.6 fL (9.1-12.4); NEUTROPHILS ABSOLUTE AUTO 5.17 K/mm3 (1.96-9.15); NEUTROPHILS PERCENT AUTO 65 % (41-73); Platelet Count 391 K/mm3 (150-400); RDW Coefficient Variation 16.4 % (11.7-14.2); RDW Standard Deviation 59.6 fL (35.1-46.3); Red Blood Cell Count 4.25 M/mm3 (4.30-5.90); White Blood Cell Count 7.94 K/mm3 (4.00-11.30)
[2019-12-08 02:19] LABS: Alanine Aminotransfer (ALT/SGP 19 U/L (12-78); Albumin, Blood 2.6 g/dL (3.4-5.0); Albumin/Globulin Ratio 0.6 (0.8-1.8); Alk Phos 141 U/L (50-136); Anion Gap 4 mmol/L (6-16); Aspartate Aminotrans (AST/SGOT 26 U/L (12-37); Bilirubin, Total 0.2 mg/dL (0.1-1.0); Blood Urea Nitrogen 6 mg/dL (8-24); Bun/Creatinine Ratio 12.9 (12.0-20.0); CO2, Blood 31 mmol/L (21-32); Calcium, Blood 8.6 mg/dL (8.5-10.1); Chloride, Blood 101 mmol/L (98-108); Creatinine, Blood 0.47 mg/dL (0.60-1.20); Ethanol (Alcohol), Blood, Med 279 mg/dL; Globulin, Blood 4.2 g/dL (2.2-4.0); Glomerular Filtration Rate >60 (60-); Glucose, Blood 91 mg/dL (70-99); Potassium, Blood 4.5 mmol/L (3.5-5.5); Sodium, Blood 136 mmol/L (136-145); Total Protein, Blood 6.8 g/dL (6.4-8.2); Troponin I <0.015 ng/mL (0.000-0.040)
== END 2019-12-08 05:17 | disposition home or self-care (01) ==
LOC: ER 01:15
PROVIDERS: Emergency Medicine
DX: S01.01XA Laceration without foreign body of scalp, initial encounter (principal); F10.10 Alcohol abuse, uncomplicated; Y90.8 Blood alcohol level of 240 mg/100 ml or more; I10 Essential (primary) hypertension; J44.9 Chronic obstructive pulmonary disease, unspecified; F32.9 Major depressive disorder, single episode, unspecified; G62.9 Polyneuropathy, unspecified; F17.210 Nicotine dependence, cigarettes, uncomplicated; Z79.899 Other long term (current) drug therapy; W18.30XA Fall on same level, unspecified, initial encounter
CPT/HCPCS: 70450; 71045; 72125; 80053; 83690; 84484; 85025; 96374; 99285-25; G0480; J1885

== ENCOUNTER 2019-12-16 00:19 | Day surgery (SDC) | payer MEDICARE, BC | END 2019-12-16 23:06 | disposition home or self-care (01) | LOC: WOUND 00:19 | DX: L89.893 Pressure ulcer of other site, stage 3 (principal); L89.892 Pressure ulcer of other site, stage 2; I73.9 Peripheral vascular disease, unspecified; I87.2 Venous insufficiency (chronic) (peripheral); J44.9 Chronic obstructive pulmonary disease, unspecified; F17.200 Nicotine dependence, unspecified, uncomplicated ==

== ENCOUNTER 2019-12-23 00:20 | Day surgery (SDC) | payer MEDICARE, BC | END 2019-12-23 23:52 | disposition home or self-care (01) | LOC: WOUND 00:20 | DX: L89.893 Pressure ulcer of other site, stage 3 (principal); L89.892 Pressure ulcer of other site, stage 2; I73.9 Peripheral vascular disease, unspecified; I87.2 Venous insufficiency (chronic) (peripheral); F17.200 Nicotine dependence, unspecified, uncomplicated; J44.9 Chronic obstructive pulmonary disease, unspecified ==

== ENCOUNTER 2019-12-28 00:14 | Day surgery (SDC) | payer MEDICARE, BC ==
[2019-12-29] MEDS ORDERED: ERTAPENEM1 GM IV (15:04)
== END 2019-12-28 15:48 | disposition home or self-care (01) ==
DX: L89.893 Pressure ulcer of other site, stage 3 (principal); L89.892 Pressure ulcer of other site, stage 2; L03.116 Cellulitis of left lower limb; J44.9 Chronic obstructive pulmonary disease, unspecified

== ENCOUNTER 2019-12-29 00:10 | Day surgery (SDC) | payer MEDICARE, BC ==
[2019-12-29] MEDS ORDERED: ERTAPENEM1 GM IV (15:04)
== END 2019-12-29 14:55 | disposition home or self-care (01) ==
LOC: ATC 00:10
DX: L97.429 Non-pressure chronic ulcer of left heel and midfoot with unspecified severity (principal); L97.419 Non-pressure chronic ulcer of right heel and midfoot with unspecified severity; J44.9 Chronic obstructive pulmonary disease, unspecified; F17.200 Nicotine dependence, unspecified, uncomplicated
CPT/HCPCS: 96365; J1335

== ENCOUNTER 2019-12-30 00:03 | Day surgery (SDC) | payer MEDICARE, BC ==
[~2019-12-30 00:03] MED LIST changes: +ERTAPENEM1 GM IV
== END 2019-12-30 23:23 | disposition home or self-care (01) ==
LOC: ATC 00:03
DX: L89.893 Pressure ulcer of other site, stage 3 (principal); L89.892 Pressure ulcer of other site, stage 2; L03.116 Cellulitis of left lower limb; F17.200 Nicotine dependence, unspecified, uncomplicated; J44.9 Chronic obstructive pulmonary disease, unspecified
CPT/HCPCS: J1335

== ENCOUNTER 2020-01-02 02:02 | Day surgery (SDC) | payer MEDICARE, BC | END 2020-01-02 22:49 | disposition home or self-care (01) | LOC: ATC 02:02 | DX: L89.893 Pressure ulcer of other site, stage 3 (principal); L89.892 Pressure ulcer of other site, stage 2; L03.116 Cellulitis of left lower limb; J44.9 Chronic obstructive pulmonary disease, unspecified; Z79.899 Other long term (current) drug therapy | CPT/HCPCS: J1335 ==

== ENCOUNTER 2020-01-05 00:06 | Day surgery (SDC) | payer MEDICARE, BC | END 2020-01-05 15:38 | disposition home or self-care (01) | LOC: ATC 00:06 | DX: L89.893 Pressure ulcer of other site, stage 3 (principal); L89.892 Pressure ulcer of other site, stage 2; L03.116 Cellulitis of left lower limb; J44.9 Chronic obstructive pulmonary disease, unspecified | CPT/HCPCS: 96365; J1335 ==

== ENCOUNTER 2020-01-06 00:10 | Day surgery (SDC) | payer MEDICARE, BC | END 2020-01-06 15:47 | disposition home or self-care (01) | LOC: ATC 00:10 | DX: L03.116 Cellulitis of left lower limb (principal); L89.893 Pressure ulcer of other site, stage 3; L89.892 Pressure ulcer of other site, stage 2; F17.200 Nicotine dependence, unspecified, uncomplicated; J44.9 Chronic obstructive pulmonary disease, unspecified | CPT/HCPCS: 96365; J1335 ==

== ENCOUNTER 2020-01-06 00:15 | Day surgery (SDC) | payer MEDICARE, BC | END 2020-01-06 22:51 | disposition home or self-care (01) | LOC: WOUND 00:15 | DX: L89.893 Pressure ulcer of other site, stage 3 (principal); L89.892 Pressure ulcer of other site, stage 2; I73.9 Peripheral vascular disease, unspecified; I87.2 Venous insufficiency (chronic) (peripheral); F17.200 Nicotine dependence, unspecified, uncomplicated; J44.9 Chronic obstructive pulmonary disease, unspecified ==

== ENCOUNTER 2020-01-07 00:52 | Day surgery (SDC) | payer MEDICARE, BC | END 2020-01-07 15:49 | disposition home or self-care (01) | LOC: ATC 00:52 | DX: L03.116 Cellulitis of left lower limb (principal); L89.893 Pressure ulcer of other site, stage 3; L89.892 Pressure ulcer of other site, stage 2; F17.200 Nicotine dependence, unspecified, uncomplicated; J44.9 Chronic obstructive pulmonary disease, unspecified | CPT/HCPCS: 96365; J1335 ==

== ENCOUNTER 2020-01-14 00:45 | Day surgery (SDC) | payer MEDICARE, BC | END 2020-01-14 23:25 | disposition home or self-care (01) | LOC: WOUND 00:45 | DX: L89.893 Pressure ulcer of other site, stage 3 (principal); L89.892 Pressure ulcer of other site, stage 2; I73.9 Peripheral vascular disease, unspecified; I87.2 Venous insufficiency (chronic) (peripheral) ==

== ENCOUNTER 2020-01-21 00:32 | Day surgery (SDC) | payer MEDICARE, BC | END 2020-01-21 23:46 | disposition home or self-care (01) | LOC: WOUND 00:32 | DX: L89.893 Pressure ulcer of other site, stage 3 (principal); L89.892 Pressure ulcer of other site, stage 2; I73.9 Peripheral vascular disease, unspecified; I87.2 Venous insufficiency (chronic) (peripheral); J44.9 Chronic obstructive pulmonary disease, unspecified; F17.200 Nicotine dependence, unspecified, uncomplicated; Z79.899 Other long term (current) drug therapy ==

== ENCOUNTER 2020-02-04 00:20 | Day surgery (SDC) | payer MEDICARE, BC | END 2020-02-04 23:00 | disposition home or self-care (01) | LOC: WOUND 00:20 | DX: L89.893 Pressure ulcer of other site, stage 3 (principal); L89.892 Pressure ulcer of other site, stage 2; I73.9 Peripheral vascular disease, unspecified; I87.2 Venous insufficiency (chronic) (peripheral); J44.9 Chronic obstructive pulmonary disease, unspecified ==

== ENCOUNTER 2020-04-07 00:26 | Day surgery (SDC) | payer MEDICARE, BC | END 2020-04-07 22:55 | disposition home or self-care (01) | LOC: WOUND 00:26 | DX: L89.893 Pressure ulcer of other site, stage 3 (principal); L89.892 Pressure ulcer of other site, stage 2; I87.2 Venous insufficiency (chronic) (peripheral); I73.9 Peripheral vascular disease, unspecified; F17.200 Nicotine dependence, unspecified, uncomplicated; J44.9 Chronic obstructive pulmonary disease, unspecified; Z79.899 Other long term (current) drug therapy ==

== ENCOUNTER 2020-04-21 00:05 | Day surgery (SDC) | payer MEDICARE, BC | END 2020-04-21 22:43 | disposition home or self-care (01) | LOC: WOUND 00:05 | DX: L89.893 Pressure ulcer of other site, stage 3 (principal); L89.892 Pressure ulcer of other site, stage 2; I73.9 Peripheral vascular disease, unspecified; I87.2 Venous insufficiency (chronic) (peripheral); F17.200 Nicotine dependence, unspecified, uncomplicated; J44.9 Chronic obstructive pulmonary disease, unspecified; Z79.899 Other long term (current) drug therapy | CPT/HCPCS: G0463 ==

== ENCOUNTER 2020-05-12 00:34 | Day surgery (SDC) | payer MEDICARE, BC | END 2020-05-12 23:05 | disposition home or self-care (01) | LOC: WOUND 00:34 | DX: I96 Gangrene, not elsewhere classified (principal); L97.422 Non-pressure chronic ulcer of left heel and midfoot with fat layer exposed; I87.2 Venous insufficiency (chronic) (peripheral); I10 Essential (primary) hypertension; H26.9 Unspecified cataract; J32.8 Other chronic sinusitis; J44.9 Chronic obstructive pulmonary disease, unspecified; M19.90 Unspecified osteoarthritis, unspecified site; H35.30 Unspecified macular degeneration; Z79.51 Long term (current) use of inhaled steroids; Z79.899 Other long term (current) drug therapy | CPT/HCPCS: G0463 ==

== ENCOUNTER 2020-05-26 02:04 | Day surgery (SDC) | payer MEDICARE, BC | END 2020-05-26 22:45 | disposition home or self-care (01) | LOC: WOUND 02:04 | DX: L89.622 Pressure ulcer of left heel, stage 2 (principal); R00.0 Tachycardia, unspecified; I73.9 Peripheral vascular disease, unspecified; I87.2 Venous insufficiency (chronic) (peripheral); J44.9 Chronic obstructive pulmonary disease, unspecified; F17.200 Nicotine dependence, unspecified, uncomplicated; Z79.899 Other long term (current) drug therapy | CPT/HCPCS: G0463 ==

== ENCOUNTER 2020-06-09 01:11 | Day surgery (SDC) | payer MEDICARE, BC | END 2020-06-09 23:02 | disposition home or self-care (01) | LOC: WOUND 01:11 | DX: L89.892 Pressure ulcer of other site, stage 2 (principal); I87.2 Venous insufficiency (chronic) (peripheral); I73.9 Peripheral vascular disease, unspecified; J44.9 Chronic obstructive pulmonary disease, unspecified; F17.200 Nicotine dependence, unspecified, uncomplicated; Z79.899 Other long term (current) drug therapy | CPT/HCPCS: G0463 ==

== ENCOUNTER 2020-08-31 01:16 | Observation (INO) | payer MEDICARE, BC ==
[~2020-08-31] VITALS: Ht 188 cm; Wt 81.7 kg
[2020-08-31 01:37] LABS: BASOPHILS ABSOLUTE AUTO 0.03 K/mm3 (0.00-0.23); BASOPHILS PERCENT AUTO 0 % (0-2); EOSINOPHILS PERCENT AUTO 0 % (0-6); Hemoglobin 14.4 g/dL (13.5-17.5); IMMATURE GRAN ABSOLUTE AUTO 0.05 K/mm3 (0.00-0.10); IMMATURE GRAN PERCENT AUTO 1 % (0-1); LYMPHOCYTES ABSOLUTE AUTO 0.75 K/mm3 (0.84-5.20); LYMPHOCYTES PERCENT AUTO 8 % (21-46); MONOCYTES ABSOLUTE AUTO 0.69 K/mm3 (0.16-1.47); MONOCYTES PERCENT AUTO 7 % (4-13); Mean Corpuscular HGB 35.6 pg (26.0-34.0); Mean Corpuscular HGB Conc 33.5 g/dL (31.5-36.5); Mean Corpuscular Volume 106 fL (80-100); Mean Platelet Volume 9.2 fL (9.1-12.4); NEUTROPHILS ABSOLUTE AUTO 7.77 K/mm3 (1.96-9.15); NEUTROPHILS PERCENT AUTO 84 % (41-73); Platelet Count 262 K/mm3 (150-400); RDW Coefficient Variation 12.1 % (11.7-14.2); RDW Standard Deviation 48.2 fL (35.1-46.3); Red Blood Cell Count 4.04 M/mm3 (4.30-5.90); White Blood Cell Count 9.29 K/mm3 (4.00-11.30)
[2020-08-31 01:46] LABS: Ethanol (Alcohol), Blood, Med 216 mg/dL
[2020-08-31 02:15] LABS: Alanine Aminotransfer (ALT/SGP 54 U/L (12-78); Albumin/Globulin Ratio 0.9 (0.8-1.8); Alk Phos 119 U/L (50-136); Anion Gap 13 mmol/L (6-16); Aspartate Aminotrans (AST/SGOT 62 U/L (12-37); Bilirubin, Total 0.3 mg/dL (0.1-1.0); Blood Urea Nitrogen 12 mg/dL (8-24); Bun/Creatinine Ratio 22.1 (12.0-20.0); CO2, Blood 24 mmol/L (21-32); CPK Creatine Kinase 148 U/L (39-308); Calcium, Blood 8.6 mg/dL (8.5-10.1); Chloride, Blood 100 mmol/L (98-108); Creatinine, Blood 0.54 mg/dL (0.60-1.20); Globulin, Blood 3.5 g/dL (2.2-4.0); Glomerular Filtration Rate >60 (60-); Glucose, Blood 126 mg/dL (70-99); Potassium, Blood 4.9 mmol/L (3.5-5.5); Sodium, Blood 137 mmol/L (136-145); Total Protein, Blood 6.5 g/dL (6.4-8.2)
--- NOTE | 2020-08-31 06:20 | NUR ---
SHIFT SUMMARY NEW ADMIT THIS AM. AAOX4. NPO. HX DAILY ETOH, NEGATIVE CIWAs THIS SHIFT. RIGHT SHOULDER WITH SCATTERED BRUISING + ABRASIONS + SWELLING, PLACED IN IMMOBILIZER. CAP REFILL BRISK, DENIES N/T ALL EXTREMITIES, MOVES FINGERS WELL. ORIENTED TO ROOM + CALL LIGHT USE. MEDICATED FOR PAIN WITH 25mcg FENTANYL X1 + ULTRAM X1. NAUSEA WITH X1 SMALL EMESIS. PT NOW RESTING WELL IN BED WITH CALL LIGHT IN REACH.
[2020-08-31] MEDS ORDERED: B-1100 M1 PO (12:20)
--- NOTE | 2020-08-31 14:08 | NUR ---
DISCHARGE SUMMARY PT A&OX4, VSS, LEFT FLOOR VIA WC WITH INSTRUCTOR HAIRSPRING, TO GO HOME WITH , WITH ALL PERSONAL POSSESSIONS INCLUDING DC PACKET. DC INSTRUCTIONS PROVIDED. PT REP UNDERSTANDING THOSE INSTRUCTIONS INCLUDING FU WITH DR KEYS 1 WEEK. IV DC'D.
== END 2020-08-31 12:41 | disposition home or self-care (01) ==
LOC: ER 01:16 → SURS 01:17 → ER 03:30 → SURS 03:36
PROVIDERS: Emergency Medicine; ADMIT Family Medicine
DX: S42.291A Other displaced fracture of upper end of right humerus, initial encounter for closed fracture (principal); I10 Essential (primary) hypertension; J44.9 Chronic obstructive pulmonary disease, unspecified; F32.9 Major depressive disorder, single episode, unspecified; F10.220 Alcohol dependence with intoxication, uncomplicated; G62.9 Polyneuropathy, unspecified; F17.210 Nicotine dependence, cigarettes, uncomplicated; E43 Unspecified severe protein-calorie malnutrition; W18.30XA Fall on same level, unspecified, initial encounter
CPT/HCPCS: 29105; 36415; 70450; 71045; 72125; 73030; 80053; 82550; 85025; 94640; 96374-59; 99285-25; A9270; G0378; G0480; J3010; J7030

== ENCOUNTER 2020-10-17 00:16 | Day surgery (SDC) | payer MEDICARE, BC | END 2020-10-17 22:55 | disposition home or self-care (01) | LOC: WOUND 00:16 | DX: S51.001A Unspecified open wound of right elbow, initial encounter (principal); I10 Essential (primary) hypertension; J44.9 Chronic obstructive pulmonary disease, unspecified; F17.200 Nicotine dependence, unspecified, uncomplicated; M19.90 Unspecified osteoarthritis, unspecified site; H26.9 Unspecified cataract; Z87.81 Personal history of (healed) traumatic fracture; Z85.46 Personal history of malignant neoplasm of prostate; W19.XXXA Unspecified fall, initial encounter | CPT/HCPCS: A9270; G0463 ==

== ENCOUNTER 2020-10-25 00:44 | Day surgery (SDC) | payer MEDICARE, BC | END 2020-10-25 22:44 | disposition home or self-care (01) | LOC: WOUND 00:44 | DX: S51.001A Unspecified open wound of right elbow, initial encounter (principal); S42.301A Unspecified fracture of shaft of humerus, right arm, initial encounter for closed fracture; J44.9 Chronic obstructive pulmonary disease, unspecified; H35.30 Unspecified macular degeneration; W19.XXXA Unspecified fall, initial encounter; Z72.0 Tobacco use | CPT/HCPCS: A9270 ==

== ENCOUNTER 2020-11-01 00:20 | Day surgery (SDC) | payer MEDICARE, BC | END 2020-11-01 22:40 | disposition home or self-care (01) | LOC: WOUND 00:20 | DX: S51.001A Unspecified open wound of right elbow, initial encounter (principal); S42.301A Unspecified fracture of shaft of humerus, right arm, initial encounter for closed fracture; J44.9 Chronic obstructive pulmonary disease, unspecified; H35.30 Unspecified macular degeneration; M19.90 Unspecified osteoarthritis, unspecified site; Z72.0 Tobacco use; W19.XXXA Unspecified fall, initial encounter | CPT/HCPCS: A9270 ==

== ENCOUNTER 2020-11-08 01:22 | Day surgery (SDC) | payer MEDICARE, BC | END 2020-11-08 23:01 | disposition home or self-care (01) | LOC: WOUND 01:22 | DX: S51.001D Unspecified open wound of right elbow, subsequent encounter (principal); X58.XXXD Exposure to other specified factors, subsequent encounter; J44.9 Chronic obstructive pulmonary disease, unspecified | CPT/HCPCS: A9270 ==

== ENCOUNTER 2020-11-15 00:22 | Day surgery (SDC) | payer MEDICARE, BC | END 2020-11-15 22:45 | disposition home or self-care (01) | LOC: WOUND 00:22 | DX: S51.001D Unspecified open wound of right elbow, subsequent encounter (principal); X58.XXXD Exposure to other specified factors, subsequent encounter | CPT/HCPCS: A9270 ==

== ENCOUNTER 2020-11-22 00:06 | Day surgery (SDC) | payer MEDICARE, BC | END 2020-11-22 22:50 | disposition home or self-care (01) | LOC: WOUND 00:06 | DX: S51.001A Unspecified open wound of right elbow, initial encounter (principal); J44.9 Chronic obstructive pulmonary disease, unspecified; I10 Essential (primary) hypertension; Z72.0 Tobacco use; X58.XXXA Exposure to other specified factors, initial encounter | CPT/HCPCS: A9270 ==

== ENCOUNTER 2020-12-06 01:13 | Day surgery (SDC) | payer MEDICARE, BC | END 2020-12-06 23:22 | disposition home or self-care (01) | LOC: WOUND 01:13 | DX: L89.013 Pressure ulcer of right elbow, stage 3 (principal); S51.001D Unspecified open wound of right elbow, subsequent encounter; X58.XXXD Exposure to other specified factors, subsequent encounter; J44.9 Chronic obstructive pulmonary disease, unspecified | CPT/HCPCS: A9270 ==

== ENCOUNTER 2021-01-16 02:26 | Day surgery (SDC) | payer MEDICARE, BC | END 2021-01-16 22:53 | disposition home or self-care (01) | LOC: WOUND 02:26 | DX: S51.001D Unspecified open wound of right elbow, subsequent encounter (principal); X58.XXXD Exposure to other specified factors, subsequent encounter; F10.10 Alcohol abuse, uncomplicated | CPT/HCPCS: A9270; G0463 ==

== ENCOUNTER 2021-01-23 00:23 | Day surgery (SDC) | payer MEDICARE, BC | END 2021-01-23 22:54 | disposition home or self-care (01) | LOC: WOUND 00:23 | DX: S51.001D Unspecified open wound of right elbow, subsequent encounter (principal); X58.XXXD Exposure to other specified factors, subsequent encounter; F10.10 Alcohol abuse, uncomplicated | CPT/HCPCS: A9270; G0463 ==

== ENCOUNTER 2021-01-30 04:44 | Day surgery (SDC) | payer MEDICARE, BC | END 2021-01-30 23:12 | disposition home or self-care (01) | LOC: WOUND 04:44 | DX: S51.001D Unspecified open wound of right elbow, subsequent encounter (principal); X58.XXXD Exposure to other specified factors, subsequent encounter; F10.10 Alcohol abuse, uncomplicated | CPT/HCPCS: A9270; G0463 ==

== ENCOUNTER 2021-02-13 04:20 | Day surgery (SDC) | payer MEDICARE, BC | END 2021-02-13 22:57 | disposition home or self-care (01) | LOC: WOUND 04:20 | DX: S51.001D Unspecified open wound of right elbow, subsequent encounter (principal); X58.XXXD Exposure to other specified factors, subsequent encounter; F10.10 Alcohol abuse, uncomplicated | CPT/HCPCS: A9270 ==

== ENCOUNTER → 2021-06-13 | Outpatient (CLI) | payer MEDICARE, BC | LOC: LAB SHORT 16:49 → LAB 16:49 | DX: N39.0 Urinary tract infection, site not specified (principal) | CPT/HCPCS: 87086 ==

== ENCOUNTER 2023-08-06 04:47 | Emergency (ER) | payer OTHER ==
[~2023-08-06] VITALS: Ht 188 cm; Wt 72.6 kg
[2023-08-06 05:27] LABS: BASOPHILS ABSOLUTE AUTO 0.03 K/mm3 (0.00-0.23); BASOPHILS PERCENT AUTO 0 % (0-2); EOSINOPHILS ABSOLUTE AUTO 0.01 K/mm3 (0.00-0.68); EOSINOPHILS PERCENT AUTO 0 % (0-6); Hematocrit 34.8 % (37.0-53.0); Hemoglobin 11.9 g/dL (13.5-17.5); IMMATURE GRAN ABSOLUTE AUTO 0.09 K/mm3 (0.00-0.10); IMMATURE GRAN PERCENT AUTO 1 % (0-1); LYMPHOCYTES ABSOLUTE AUTO 0.78 K/mm3 (0.84-5.20); LYMPHOCYTES PERCENT AUTO 5 % (21-46); MONOCYTES PERCENT AUTO 6 % (4-13); Mean Corpuscular HGB 33.1 pg (26.0-34.0); Mean Corpuscular HGB Conc 34.2 g/dL (31.5-36.5); Mean Corpuscular Volume 97 fL (80-100); NEUTROPHILS ABSOLUTE AUTO 14.91 K/mm3 (1.96-9.15); NEUTROPHILS PERCENT AUTO 89 % (41-73); Platelet Count 457 K/mm3 (150-400); RDW Coefficient Variation 12.6 % (11.7-14.2); RDW Standard Deviation 44.5 fL (35.1-46.3); White Blood Cell Count 16.82 K/mm3 (4.00-11.30)
[2023-08-06] MEDS ORDERED: TRAZ50 PO (05:30)
[2023-08-06] MEDS ORDERED: Prednisone10 MG PO (05:30)
[2023-08-06 05:45] LABS: Alanine Aminotransfer (ALT/SGP 15 U/L (12-78); Albumin, Blood 2.4 g/dL (3.4-5.0); Albumin/Globulin Ratio 0.8 (0.8-1.8); Alk Phos 118 U/L (50-136); Anion Gap 4 mmol/L (6-16); Aspartate Aminotrans (AST/SGOT 18 U/L (12-37); Bilirubin, Total 0.3 mg/dL (0.1-1.0); Blood Urea Nitrogen 18 mg/dL (8-24); Bun/Creatinine Ratio 37.3 (12.0-20.0); CO2, Blood 30 mmol/L (21-32); Chloride, Blood 101 mmol/L (98-108); Creatinine, Blood 0.48 mg/dL (0.60-1.20); Globulin, Blood 3.2 g/dL (2.2-4.0); Glomerular Filtration Rate 105 (60-); Glucose, Blood 148 mg/dL (70-99); Potassium, Blood 3.9 mmol/L (3.5-5.5); Sodium, Blood 135 mmol/L (136-145); Total Protein, Blood 5.6 g/dL (6.4-8.2)
[2023-08-06 06:56] LABS: Free Thyroxine 1.14 ng/dL (0.70-1.60); Thyroid Stimulating Hormone 2.48 uIU/mL (0.360-4.800)
[2023-08-06 07:48] LABS: Influenza A, PCR NEGATIVE (NEGATIVE); Influenza B, PCR NEGATIVE (NEGATIVE); Resp Syncytial Virus, PCR NEGATIVE (NEGATIVE); SARS-Cov-2 (COVID-19) PCR, MMC NEGATIVE (NEGATIVE)
[2023-08-06 08:38] LABS: Source, Urine Clean Catch
[2023-08-06 08:44] LABS: Appearance, Urine Clear (Clear); Bilirubin, Urine Neg (Neg); Blood, Urine Neg (Neg); Color, Urine Yellow (P-Yellow); Glucose Qualitative, Urine Neg (Neg); Ketones, Urine 1+ (Neg); Leukocyte Esterase, Urine Neg (Neg); Nitrite, Urine Neg (Neg); Protein, Urine Neg (Neg); Specific Gravity, Urine 1.015 (1.003-1.022); Urobilinogen, Urine NORM (Normal)
[2023-08-06 09:47] VITALS: BP 131/86
== END 2023-08-06 09:56 | disposition home or self-care (01) ==
LOC: ER 04:47
PROVIDERS: Emergency Medicine
DX: R07.89 Other chest pain (principal); J44.9 Chronic obstructive pulmonary disease, unspecified; I10 Essential (primary) hypertension; F17.210 Nicotine dependence, cigarettes, uncomplicated; Z11.52 Encounter for screening for COVID-19; Z79.51 Long term (current) use of inhaled steroids; Z79.52 Long term (current) use of systemic steroids; Z79.899 Other long term (current) drug therapy
CPT/HCPCS: 0241U; 71046; 80053; 81003; 83880; 84439; 84443; 84484; 85025; 93005; 93010; 96360; 96361; 99285-25; A9270; J7030

== ENCOUNTER → 2024-03-31 | Outpatient (CLI) | payer OTHER ==
[~2024-03-31] MED LIST changes: +Prednisone10 MG PO; +TRAZ50 PO
== END ==
LOC: LAB SHORT 17:39 → LAB 17:39
DX: R30.0 Dysuria (principal)
CPT/HCPCS: 87086

== ENCOUNTER → 2024-04-08 | Outpatient (CLI) | payer OTHER ==
[2024-04-08 15:36] LABS: Source, Urine Clean Catch
[2024-04-08 16:04] LABS: Appearance, Urine Hazy (Clear); Bilirubin, Urine Neg (Neg); Blood, Urine 2+ (Neg); Color, Urine Yellow (P-Yellow); Glucose Qualitative, Urine Neg (Neg); Ketones, Urine Neg (Neg); Leukocyte Esterase, Urine 3+ (Neg); Nitrite, Urine Pos (Neg); Protein, Urine 1+ (Neg); Urobilinogen, Urine NORM (Normal)
[2024-04-08 16:12] LABS: Bacteria Many /hpf; Squamous Epithelial Cells Not Seen /hpf (Few); White Blood Cells, Urine TNTC /hpf (0-5)
== END ==
LOC: LAB 15:32 → LAB SHORT 15:32
PROVIDERS: Physician Assistant
DX: R30.0 Dysuria (principal)
CPT/HCPCS: 81001; 87077; 87086; 87186

== ENCOUNTER → 2024-04-28 | Outpatient (CLI) | payer OTHER ==
[2024-04-28 11:02] LABS: BASOPHILS ABSOLUTE AUTO 0.03 K/mm3 (0.00-0.23); BASOPHILS PERCENT AUTO 0 % (0-2); EOSINOPHILS ABSOLUTE AUTO 0.01 K/mm3 (0.00-0.68); EOSINOPHILS PERCENT AUTO 0 % (0-6); Hematocrit 39.8 % (37.0-53.0); IMMATURE GRAN ABSOLUTE AUTO 0.06 K/mm3 (0.00-0.10); IMMATURE GRAN PERCENT AUTO 0 % (0-1); LYMPHOCYTES ABSOLUTE AUTO 0.76 K/mm3 (0.84-5.20); LYMPHOCYTES PERCENT AUTO 5 % (21-46); MONOCYTES ABSOLUTE AUTO 1.02 K/mm3 (0.16-1.47); MONOCYTES PERCENT AUTO 7 % (4-13); Mean Corpuscular HGB 32.4 pg (26.0-34.0); Mean Corpuscular HGB Conc 35.2 g/dL (31.5-36.5); Mean Corpuscular Volume 92 fL (80-100); NEUTROPHILS ABSOLUTE AUTO 13.52 K/mm3 (1.96-9.15); NEUTROPHILS PERCENT AUTO 88 % (41-73); Platelet Count 369 K/mm3 (150-400); RDW Coefficient Variation 13.2 % (11.7-14.2); RDW Standard Deviation 44.3 fL (35.1-46.3); Red Blood Cell Count 4.32 M/mm3 (4.30-5.90)
[2024-04-28 11:12] LABS: Albumin, Blood 2.3 g/dL (3.4-5.0); Albumin/Globulin Ratio 0.6 (0.8-1.8); Bilirubin, Total 0.4 mg/dL (0.1-1.0); Bun/Creatinine Ratio 13.4 (12.0-20.0); Calcium, Blood 8.6 mg/dL (8.5-10.1); Creatinine, Blood 0.67 mg/dL (0.60-1.20); Globulin, Blood 4.1 g/dL (2.2-4.0); Potassium, Blood 3.4 mmol/L (3.5-5.5); Total Protein, Blood 6.4 g/dL (6.4-8.2)
== END ==
LOC: LAB SHORT 10:58 → LAB 10:58
PROVIDERS: Physician Assistant
DX: R11.10 Vomiting, unspecified (principal)
CPT/HCPCS: 80053; 85025